=== PATIENT | female | born 1995 | race Two or more races ===

== ENCOUNTER 2019-01-11 16:36 | Emergency (ER) | payer MEDICAID ==
[~2019-01-11] VITALS: Ht 172.7 cm; Wt 85.3 kg
[2019-01-11] MEDS ORDERED: NKM (16:51)
--- NOTE | 2019-01-11 17:08 | NUR ---
ED Nurse Note: pt presents with pain to right jaw area that radiates to rt ear and throat. states noticed pain approx x 1 week. eval by pa. family with pt pt without resp compromise.
[2019-01-11 17:09] VITALS: BP 121/80
[2019-01-11] MEDS ORDERED: Hydrogen Peroxide 473ml Bottle TOPIC ONE (17:15)
[2019-01-11] MEDS ORDERED: Lidocaine 2% Visc 15ml soln ORAL ONE (17:15)
--- NOTE | 2019-01-11 17:24 | NUR ---
ED Nurse Note:pt tolerating meds given as ordered. no pus or blood noted with swish and spit of h2o2. lidocaine applied with cotton gauze
[2019-01-11] MEDS ORDERED: Tetanus/Diptheria/Pertussis IM ONE (17:30)
--- NOTE | 2019-01-11 17:38 | Emergency Room Report ---
History of Present Illness General Chief Complaint: Toothache Source: Patient Present Illness HPI 23-year-old female presents to the emergency department complaining of exams 10 in severity pain, swelling, tenderness and palpable lump in the right lower gumline. Patient states that she was seen by her dentist who stated that she needs I&D however he also wanted to perform a root canal for which she did not want to pay for. Patient was then referred to the ER for I&D of, abscess. Patient denies fevers or chills she denies history of immunocompromise. Patient states she is not taking antibiotics. She reports chewing or palpation exacerbated her symptoms. Patient states she has no relief at this time. Denies swollen tender lymph nodes, or difficulty with swallowing or breathing. She is not sure when her last tetanus vaccination was. Allergies: Coded Allergies: AMOXICILLIN (Verified Allergy, Unknown, 01/11/19) LEVONORGESTREL (Verified Allergy, Unknown, 01/11/19) Patient History Past Medical History: see triage record Past Surgical History: none Pertinent Family History: none Last Menstrual Period: 01/01/19 Now: No Reviewed Nursing Documentation: PMH: Agreed; PSxH: Agreed Nursing Documentation-PMH Past Medical History: No Stated History Review of Systems All Other Systems: negative except mentioned in HPI Physical Exam Vital Signs Date Time Temp Pulse Resp B/P (MAP) Pulse Ox O2 Delivery O2 Flow Rate FiO2 01/11/19 16:47 98.8 86 16 97 Room Air 01/11/19 17:09 121/80 Sp02 EP Interpretation: reviewed, normal General Appearance: alert, GCS 15, non-toxic, mild distress Head: normocephalic, atraumatic Eyes: bilateral eye normal inspection, bilateral eye PERRL ENT: hearing grossly normal, normal voice, other - gum abscess in the lower right posterior gumline, palpable fluctuance noted. Neck: full range of motion Respiratory: chest non-tender, lungs clear, normal breath sounds, speaking full sentences Cardiovascular #1: regular rate, rhythm Musculoskeletal: back normal, gait/station normal, normal range of motion, non- tender Neurologic: alert, oriented x3, responsive, motor strength/tone normal, sensory intact, speech normal, grossly normal Psychiatric: judgement/insight normal Skin: normal color, no rash, warm/dry, well hydrated Lymphatic: no adenopathy Procedures Incision and Drainage Incision and Drainage : Consent: Verbal Site: right posterior gum line buccal side Blade Size: no. 10 Wound Location: other - mouth Wound's Depth, Shape: superficial Wound Length (cm): 1 Wound Explored: contaminated - thick purulent d/c expressed Anesthesia: other - viscous lidocaine 10ml Splint Applied?: No Sling Applied?: No Patient Tolerated: Well Complications: None Medical Decision Making PA Attestation Dr. mckay is my supervising Physician whom patient management has been discussed with. Diagnostic Impression: Primary Impression: Gum abscess ER Course 23-year-old female presents to the emergency department complaining of exams 10 in severity pain, swelling, tenderness and palpable lump in the right lower gumline. Patient states that she was seen by her dentist who stated that she needs I&D however he also wanted to perform a root canal for which she did not want to pay for. Patient was then referred to the ER for I&D of, abscess. Patient denies fevers or chills she denies history of immunocompromise. Patient states she is not taking antibiotics. She reports chewing or palpation exacerbated her symptoms. Patient states she has no relief at this time. Denies swollen tender lymph nodes, or difficulty with swallowing or breathing. She is not sure when her last tetanus vaccination was. Ddx considered but are not limited to cellulitis, dental abscess, orbital cellulitis, d/l tooth, dental pain. trigeminal neuralgia Vital signs: are WNL, pt. is afebrile H&PE are most consistent with gum abscess in the lower right posterior gumline, palpable fluctuance noted. ORDERS: none required at this time, the diagnosis is clinical ED INTERVENTIONS: -I & D. -I do not identify an emergent condition at this time. With current presentation , pt. is stable for close outpatient follow up and conservative treatment. D/ w pt. to return promptly to ED with worsening or new symptoms.- Pt. verbalizes' understanding and agreement with proposed treatment plan. DISCHARGE: At this time pt. is stable for d/c to home. Will provide printed patient care instructions, and any necessary prescriptions. Care plan and follow up instructions have been discussed with the patient prior to discharge. Last Vital Signs Date Time Temp Pulse Resp B/P (MAP) Pulse Ox O2 Delivery O2 Flow Rate FiO2 01/11/19 17:09 98.8 76 16 121/80 97 Room Air Disposition: HOME, SELF-CARE Condition: Stable Scripts Chlorhexidine Gluconate (CHLORHEXIDINE GLUCONATE) 473 Ml Mouthwash 15 ML MM TID, #473 ML Prov: Philly Gimenez 01/11/19 Acetaminophen* (TYLENOL EXTRA STRENGTH*) 500 Mg Tablet 500 MG ORAL Q6H, #20 TAB 0 Refills Prov: Philly Gimenez 01/11/19 Clindamycin Hcl (CLINDAMYCIN HCL) 300 Mg Capsule 300 MG ORAL FOUR TIMES A DAY for 7 Days, #28 CAP Prov: Philly Gimenez 01/11/19 Patient Instructions: Dental Abscess Additional Instructions: Take medications as directed. Follow up with a Dentist in 3-5 days, even if your symptoms have resolved. * * --Please review list of Dental clinics, if you do not already have a Dentist Return sooner to ED if new symptoms occur, or current symptoms become worse. Do not drink alcohol, drive, or operate heavy machinery while taking Tylenol # 3 as this may cause drowsiness. - Please note that this Emergency Department Report was dictated using [employer] technology software, occasionally this can lead to erroneous entry secondary to interpretation by the dictation equipment. Philly Gimenez January 11, 2019 17:38
[2019-01-11] MEDS ORDERED: TYLENOL EXTRA500 MG ORAL (18:13)
[2019-01-11] MEDS ORDERED: CLINDAMYCIN HC300 MG ORAL (18:13)
[2019-01-11] MEDS ORDERED: CHLORHEXIDINE473 ML MM (18:13)
--- NOTE | 2019-01-11 18:41 | NUR ---
ED Nurse Note: pt given dc aci and script dental clinic refferrals given as ordered. pt agrees to f/u plan. amb steady gait out of ed.
[2019-01-11 18:42] VITALS: BP 118/76
== END 2019-01-11 18:40 | disposition home or self-care (01) ==
LOC: EMR 17:24
DX: K05.219 Aggressive periodontitis, localized, unspecified severity (principal); Z23 Encounter for immunization; Z88.0 Allergy status to penicillin; Z88.8 Allergy status to other drugs, medicaments and biological substances
CPT/HCPCS: 41800; 90471; 90715; 99283; Z7502